=== PATIENT | female | born 1975 | race African-American/Black ===

== ENCOUNTER → 2016-04-23 | Outpatient (CLI) | payer OTHER ==
[~2016-04-23] MED LIST: ACETAMINOPHEN500 M5 PO; ALL DAY ALLERGY10 M3 PO; AMLODIPINE BESYL5 MG PO; BIOTIN1000 MCG; BIRTH CONTROL PILL; CIPRO PO; CRANBERRY450 M1 PO; HYDROCHLOROTHIA25 MG PO; JARDIANCE10 MG PO; K-DUR20 ME1 PO; LEVEMIR SUBQ; METFORMIN HCL1000 M1 PO; METFORMIN HCL500 M3 PO; NASAL CROM; NOVOLOG100 U/ML SUBQ; TRULICITY0.75 MG/0. SUBQ; VIBRAMYCIN100 M1 PO; ZESTRIL40 MG PO; ZYRTEC PO
--- NOTE | ~2016-04-23 | EKG ---
PATIENT: EAGLE CROCKETT UNIT #: [id number] Ventricular Rate: 60 BPM Atrial Rate: 60 BPM P-R Interval: 184 ms QRS Duration: 96 ms Q-T Interval: 408 ms QTC Calculation(Bezet): 408 ms P [place]: -2 degrees Calculated R [place]: 14 degrees Calculated T [place]: 10 degrees Diagnosis Line: Normal sinus rhythm Diagnosis Line: Normal ECG Diagnosis Line: When compared with ECG of 18-OCT-2014 13:25, Diagnosis Line: Vent. rate has decreased BY 30 BPM Diagnosis Line: T wave amplitude has decreased in Anterior leads Diagnosis Line: QT has shortened Diagnosis Line: Confirmed by CLAYTON ATKINS MD ([id number]) on 04/23/2016 Diagnosis Line: 4:47:16 PM INTERPRETING MD: WILBERT LOREDO
[2016-04-23 13:59] LABS: ALBUMIN SERUM 4.3 g/dL (3.5-5.0); ALKALINE PHOSPHATASE 43 U/L (32-92); ALT (SGPT) 55 U/L (10-40); AST (SGOT) 34 U/L (10-42); BILIRUBIN,TOTAL 0.9 mg/dL (0.2-2.0); BLOOD UREA NITROGEN 17 mg/dL (9-23); BUN/CREATININE RATIO 18.88; CALCIUM SERUM 9.7 mg/dL (8.4-10.2); CARBON DIOXIDE 28 mmol/L (22-31); CHLORIDE 106 mmol/L (100-111); CREATININE SERUM 0.9 mg/dL (0.6-1.4); GLOM FILT RATE Estimated ABOVE60 mL/min (>60); GLUCOSE FASTING 94 mg/dL (70-110); POTASSIUM 3.5 mmol/L (3.5-5.1); PROTEIN TOTAL SERUM 7.6 g/dL (6.0-8.3); SODIUM 142 mmol/L (135-145)
== END | disposition home or self-care (01) ==
LOC: CAMB 10:29
PROVIDERS: Surgery
DX: Z01.818 Encounter for other preprocedural examination (principal); K80.20 Calculus of gallbladder without cholecystitis without obstruction
CPT/HCPCS: 36415; 80053; 93005

== ENCOUNTER → 2016-04-30 | Day surgery (SDC) | payer OTHER ==
--- NOTE | ~2016-04-30 | OR ---
Unit #: [id number] #: [id number] Patient: EAGLE CROCKETT [id number] [address] [place], [place] [address] [id number] MR#: [id number] NAME: EAGLE CROCKETT ROOM: Date of Procedure: 04/30/2016 Admission Date: 04/30/2016 Surgeon: Gabe Street Jr., M.D. : 1975 Attending Physician: Gabe Street Jr., M.D. Referring Physician: Gabe Street Jr., M.D. Primary Care Physician: Yessenia Judge A.P.R.N. OPERATIVE REPORT INDICATION FOR PROCEDURE The patient is a 40-year-old obese black female, recently presented to the office complaining of intermittent mid epigastric and right upper quadrant abdominal pains and documented gallstones. It is felt she is having biliary colic. She was noted to have some slight elevation of her liver function tests, but this has all been corrected spontaneously and presently her liver function tests today except for noting minimal elevation of ALT are all normal. She has had no history for jaundice, hepatitis, pancreatitis, or peptic ulcer disease. She is brought in this time for laparoscopic cholecystectomy and if the cystic duct was noted to be dilated, possible intraoperative cholangiograms. PREOPERATIVE DIAGNOSES Chronic cholecystitis and cholelithiasis. POSTOPERATIVE DIAGNOSES Chronic cholecystitis and cholelithiasis, noting a globular liver compatible with some steatosis of the liver. Common duct appeared normal. Cystic duct was small. ANESTHESIA General with endotracheal intubation and 0.5% Marcaine with epinephrine locally. PROCEDURE PERFORMED Laparoscopic cholecystectomy. DESCRIPTION OF PROCEDURE The patient was positioned in supine position. After being anesthetized and intubated, she was prepped and draped in routine fashion for laparoscopic cholecystectomy. A small supraumbilical incision was made approximately a 1 cm in length. This was carried down to the fascia. The fascia lifted between 2 Moy clamps and a Veress needle introduced in the abdomen. The abdomen was then inflated with CO2 gas. A 5-mm port was introduced into the abdomen followed by the camera. There was no evidence of any injury related to introduction of the port of the Veress needle. Brief intra-abdominal exploration was carried out. The patient was noted to have a chronically inflamed gallbladder. Otherwise, the exam was not remarkable. At this point, two 5-mm ports were placed laterally and an 11-mm port just to the right of the upper midline. The gallbladder was lifted. Dissection was carried out in the triangle of Calot with multiple adhesions being lysed with hook scissors as well as blunt dissection. Unit #: [id number] #: [id number] Patient: EAGLE CROCKETT Cystic duct was identified only 1 mm or so in diameter. It was hemoclipped x4 and divided 1 cm from its junction with the common duct. The common duct appeared normal in size. Cystic artery was identified, hemoclipped x3, and divided. The gallbladder was then removed from its bed with the hook cautery using a current of 20. There was some inflammation posterior to the gallbladder in the gallbladder bed, but no severe acute inflammation. The gallbladder was removed from its bed and then placed an EndoCatch bag and brought out through the larger port site after this was extended approximately a 1 cm. The gallbladder was very large. It was sent to pathology. The port was then replaced. Subhepatic space checked. There was no evidence of any bleeding from the gallbladder bed. The clips on cystic duct and cystic artery were intact with no evidence of any leak or bleeding. The port sites were then injected with 0.5% Marcaine with epinephrine locally. The fascia in the larger port site to the right of the upper midline was closed with a [id number] 0 Vicryl suture. The wounds were irrigated. After hemostasis achieved with Bovie cautery, the skin edges were approximated with stainless-steel skin clips and skin stapling device. Sterile dressings were applied externally. Estimated blood loss less than 50 mL. The patient received less than 1500 mL crystalloid solution during the procedure. Sponges and instrument counts were correct x3. No drains used. No complications. The patient was taken to the recovery room with stable vital signs and in satisfactory condition. Dictated by... Gabe Street Jr., M.D. JMB/carole TD: 05/01/2016 00:46 JOB #: [id number] OPERATIVE REPORT X Gabe Street MD X PROCEDURE OPERATIVE NOTE
== END | disposition home or self-care (01) ==
LOC: CSUR 11:24
DX: K80.10 Calculus of gallbladder with chronic cholecystitis without obstruction (principal); K76.0 Fatty (change of) liver, not elsewhere classified; I10 Essential (primary) hypertension; E11.9 Type 2 diabetes mellitus without complications; K21.9 Gastro-esophageal reflux disease without esophagitis; Z79.4 Long term (current) use of insulin; Z79.899 Other long term (current) drug therapy; Z98.890 Other specified postprocedural states
CPT/HCPCS: 82947; 84703; 88304; J0131; J0330; J0690; J1650; J1885; J2250; J2405; J2710; J3010